=== PATIENT | male | born 1990 | race Caucasian/White ===

== ENCOUNTER 2021-01-14 13:53 | Emergency (ER) | payer OTHER ==
[~2021-01-14] VITALS: Ht 180.3 cm; Wt 81.8 kg
[~2021-01-14 13:53] MED LIST: ATARAX OR; ATIV1TAB2 OR; DEPA250T3 OR; DEPA500T OR; EFFE75CA75 OR; HYDR50TA70 PO; LAMI25TA OR; No Historical Meds; SERO1TAB OR; SERO1TAB2 PO; SERO200T PO
[2021-01-14 15:14] VITALS: BP 152/85
== END 2021-01-14 16:51 | disposition home or self-care (01) ==
LOC: M ED 13:53
DX: F43.20 Adjustment disorder, unspecified (principal); F32.9 Major depressive disorder, single episode, unspecified; Z87.891 Personal history of nicotine dependence